=== PATIENT | male | born 1990 | race Caucasian/White ===

== ENCOUNTER 2018-01-12 20:06 | Emergency (ER) | payer SELFPAY ==
[2018-01-12 20:13] VITALS: BP 150/94; PULSE 76; TEMP 97.8; BMI 28.7
--- NOTE | 2018-01-12 20:42 | PDOC ---
History of Present Illness - General Chief Complaint: Pain Stated Complaint: ARM INJURY - History of Present Illness Initial Comments: 27-year-old male presents for evaluation of left elbow pain after fall on his left elbow. He denies any other associated symptoms he did not hit his head. He has no medical issues that he takes medicine for at home no ALLERGIES to medicine. 01/12/18 20:41 01/12/18 20:41 Past History - Past Medical History Allergies/Adverse Reactions: Allergies Allergy/AdvReac Type Severity Reaction Status Date / Time No Known Allergies Allergy Verified 01/12/18 20:11 Home Medications: Ambulatory Orders NK [No Known Home Medication] 01/12/18 COPD: No Other medical history: Pt denies - Suicide/Smoking/Psychosocial Hx Smoking History: Never smoked Have you smoked in the past 12 months: No Information on smoking cessation initiated: No Hx Alcohol Use: No Drug/Substance Use Hx: No Substance Use Type: None Review of Systems - Review of Systems Musculoskeletal: Yes: Joint Pain All Other Systems: Reviewed and Negative *Physical Exam - Vital Signs Last Vital Signs Temp Pulse Resp BP Pulse Ox 97.8 F 76 18 150/94 99 01/12/18 20:11 01/12/18 20:11 01/12/18 20:11 01/12/18 20:11 01/12/18 20:11 - Physical Exam Comments: Left elbow skin color and temperature are normal there is tenderness about the radial aspect of the left elbow in the area of the radial head. He has decreased supination and pronation as well as flexion and extension. His upper extremity compartments are soft and nontender. He has full wrist range of motion however he is unable to supinate and pronate. He wiggles his fingers makes a fist he has no gross sensorimotor deficits she's neurovascularly intact 01/12/18 20:41 ED Treatment Course - RADIOLOGY Radiology Studies Ordered: Category Date Time Status ELBOW-LEFT [RAD] Stat Radiology 01/12/18 20:39 Ordered Medical Decision Making - Medical Decision Making Left radial head fracture posterior splint was applied patient was neurovascularly intact post-splint application. 01/12/18 21:24 *DC/Admit/Observation/Transfer Diagnosis at time of Disposition: Fracture of radial head, closed - Discharge Dispostion Disposition: HOME Decision to Admit order: Yes - Referrals Referrals: Zan Martinez MD [Staff Physician] - Chandler De Oliveiar MD [Staff Physician] - - Patient Instructions Printed Discharge Instructions: How to Use a Sling, DI for Elbow Fracture Additional Instructions: He must follow-up with surgery for further evaluation and treatment options. I believe your fracture requires surgical intervention. Return to the emergency room should her symptoms worsen or go unresolved. He may only take Tylenol at this point for pain. Take it as directed on the bottle. - Post Discharge Activity
== END 2018-01-12 21:32 | disposition home or self-care (01) ==
LOC: JERFT 20:06
PROC: 2W3DX1Z Immobilization of Left Lower Arm using Splint (ICD-10-PCS; principal; 2018-01-12)
DX: S52.125A Nondisplaced fracture of head of left radius, initial encounter for closed fracture (principal); W18.39XA Other fall on same level, initial encounter; Y93.89 Activity, other specified; Y92.9 Unspecified place or not applicable
CPT/HCPCS: 73070-TC-LT-FY; 99282-25